=== PATIENT | female | born 1995 | race Two or more races ===

== ENCOUNTER 2024-11-15 11:14 | Emergency (ER) | payer MEDICAID, OTHER ==
[~2024-11-15] VITALS: Ht 157.5 cm; Wt 54.5 kg
[2024-11-15 11:48] VITALS: TEMP 98
[2024-11-15 14:40] VITALS: BP 113/74; PULSE 89; RESP 16; O2SAT 99
[2024-11-15] MEDS: ACETAMINOPHEN 325 MG TABLET PO ONE (14:58)
[2024-11-15] MEDS ORDERED: IBUP-1506 PO (15:07)
[2024-11-15] MEDS ORDERED: ACET-2247 PO (15:07)
== END 2024-11-15 15:55 | disposition home or self-care (01) ==
LOC: EMS 11:29
DX: S92.352A Displaced fracture of fifth metatarsal bone, left foot, initial encounter for closed fracture (principal); W01.0XXA Fall on same level from slipping, tripping and stumbling without subsequent striking against object, initial encounter; Y93.89 Activity, other specified; Y92.89 Other specified places as the place of occurrence of the external cause; Y99.8 Other external cause status
CPT/HCPCS: 29515; 99283